=== PATIENT | male | born 1960 | race Two or more races ===

== ENCOUNTER → 2017-02-01 | Outpatient (CLI) | payer OTHER ==
--- NOTE | 2017-02-01 18:18 | RADRPT ---
PROCEDURE: XR Right hip and pelvis. CLINICAL INDICATION: Right hip pain. Pelvic pain. TECHNIQUE: Two views. Frontal pelvis and lateral right hip. COMPARISON: No prior studies are available for comparison. FINDINGS: There is no fracture or dislocation. The soft tissues are normal. There are degenerative changes of the right hip with joint space narrowing and osteophytes. The left hip is grossly normal. There is no lytic or blastic lesion. The upper pelvis is not completely included on the image. IMPRESSION: 1. Moderate degenerative changes of the right hip. 2. Grossly normal appearance of the left hip and pelvis. RPTAT: QQ .Damon Bunch MD, MD Date Time Electronically viewed and signed by .Damon Bunch MD, MD on 02/01/2017 18:17 .R/
--- NOTE | 2017-02-01 22:51 | HKNOTE ---
DATE OF SERVICE: 02/01/2017 MAIN COMPLAINT: Pain in the right buttocks with radiation down the right leg, ("My hip"). 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 He had lumbar spine surgery in 1990, which was very successful. His hip has felt no rmal until last week. All these years, he felt that the spine surgery was successful. A few weeks ago, he says he started having pain in the right buttocks, with radiation down his leg. Last week, the pain was very sever e. It started while he was playing hockey. He could barely walk. He had to miss 3 days of work on account of the pain. PRESENT COMPLAINTS: The pain in his right buttocks is aggravated by walking, stair climbing. Last week, the pain was so severe that he had to skip hockey. He does get rest pain and night pain. Yes terday, he had no pain; today the pain is "bad again". The patient gets numbness and tingling in his right buttocks which radiates down his right leg almos t to the ankle. He does not limp. The patient wears orthotic shoes for low back pain. He can put on his own shoes and socks. SPORTING ACTIVITIES: Tennis, hockey and yoga (not currently because of his pain). PAST SURGICAL HISTORY: Lumbar laminectomy in 1989, bone spur on the pelvis removed in 1990. PREVIOUS MAJOR INJURIES: Two broken wrists in 1974 and 1979. PRIOR CORTISONE INTAKE: None. ALCOHOL INTAKE: Only on social occasions. OTHER JOINT PROBLEMS: The patient has bow legged, but he has no pain in his knees. He has not had any blood tests for arthritis. No to hips or knees, except that he plays street hockey. He h as never injured his hips. 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 PAST MEDICAL HISTORY: Negative. FAMILY HISTORY: Noncontributory. SYSTEMS REVIEW: Age related failing vision, history of pneumonia and 1 time spit up blood. The pat ient gets tingling sensations and numbness in the right buttocks, which radiates right down his leg to his knee. SIDE LASTER STAPLE: Dr. Caty Gomez [address] [place] [id number]. PHYSICAL EXAMINATION: GENERAL: The patient is a somewhat fragile looking, 56-year-old male. VITAL SIGNS: Height 5 feet 8 inches, 240 pounds. Blood pressure 110/63, temperature 97.6. GAIT: The patient walks without a walking aid. BACK: Dynamic pain assessment reveals a pain free range of motion in flexion, extension, lateral be nding, and rotation. Inspection of the spine reveals no list. There is no lumbar paraspinal muscle s pasm. The pelvis is level. Facet stress test is negative bilaterally. Palpation of the spine demonst rates no tenderness of the spinous processes, facet joints, sacroiliac joint, sciatic notch, or post erior thigh. Flexion is 80% of normal without pain. Extension is 60% of normal without pain. NEUROLOGIC: Sensory testing (pinprick) reveals no deficit in the lower extremities. Motor examinati on reveals no muscle deficit in the lower extremities. Deep tendon reflexes in the lower extremities : Right knee plus, left knee jerk plus, right ankle jerk plus, left ankle jerk plus. Straight leg r aising is positive on the right at 70 degrees, and negative on the left at 80 degrees. Lasegue and F ABER tests are negative. HIP: Both hips have a full range of motion without pain. There is no tenderness anywhere around th e hips. RIGHT KNEE: The right knee shows varus alignment. Active and passive extension is 0 degrees. Active and passive flexion is 135 degrees. The medial and lateral collateral ligaments and cruciate ligame nts are intact. Luis test is negative. There is no effusion, tenderness, scarring, crepitus, or c ysts. The patella tracks normally. There is no tenderness on the articular surface of the patella or in the patellar groove. The Q angle is normal. LEFT KNEE: The left knee shows varus alignment. Active and passive extension is 0 degrees. Active a nd passive flexion is 135 degrees. The medial and lateral collateral ligaments and cruciate ligament s are intact. Luis test is negative. There is no effusion, tenderness, scarring, crepitus, or cys ts. The patella tracks normally. There is no tenderness on the articular surface of the patella or i n the patellar groove. The Q angle is normal. IMAGING: Plain x-rays of his pelvis and hips obtained today show 30% narrowing of the right joint s pace, and approximately 20% narrowing of the left hip joint space. The hip sockets are shallow (dys plastic). DIAGNOSES 1. Right-sided sciatica. 2. 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 3. Mild osteoarthritis of the left hip. MANAGEMENT: The patient declined a cortisone injection into his right hip. In any case, I do belie ve his main problem is low back pain with sciatica. He has not had an MRI scan of his lumbar spine for some time, I will call him with the results of the MRI scan. The patient declines all medications. Further tr eatment will dependant upon the findings of the MRI. Dictated By: SMITHA MILLARD/SAMARA Conf#: [id number] DID#: [id number]
== END | disposition home or self-care (01) ==
LOC: HKI 14:41
DX: M54.31 Sciatica, right side (principal); M16.12 Unilateral primary osteoarthritis, left hip
CPT/HCPCS: 73502; G0463